=== PATIENT | female | born 1945 | race Caucasian/White ===

== ENCOUNTER 2023-08-23 17:07 | Emergency (ER) | payer MEDICARE, OTHER, SELFPAY ==
[2023-08-23] VITALS (18 sets, daily range): BP systolic 150–184; BP diastolic 66–95; PULSE 59–73; RESP 16–24; TEMP 36.2; O2SAT 93–99; BMI 26.6
--- NOTE | 2023-08-23 17:23 | DI.RAD.S_ITS ---
PROCEDURE: XR CHEST 1V INDICATIONS: chest pain TECHNIQUE: One view of the chest was acquired. COMPARISON: None. FINDINGS: Surgical changes and devices: None. Lungs and pleura: Lungs are clear. No pleural effusions or pneumothorax. Mediastinum: Mediastinal contours appear normal. Heart size is normal. Bones and chest wall: No suspicious bony lesions. Overlying soft tissues appear unremarkable. IMPRESSION: No acute cardiopulmonary abnormality is seen. Dictated by: Howard Templeton M.D. on 08/23/2023 at 16:51 Approved by: Howard Templeton M.D. on 08/23/2023 at 16:51
--- NOTE | 2023-08-23 17:23 | EKG_ITS ---
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
[2023-08-23 17:44] LABS: Add Manual Diff / Slide Review NO; Basophils Absolute Auto 100 /uL (0-100); Basophils Percent Auto 0.9 % (0-2); Eosinophils Absolute Auto 200 /uL (0-450); Eosinophils Percent Auto 2.2 % (2-4); Hematocrit 39.5 % (36-46); Hemoglobin 13.9 g/dL (12.0-16.0); Lymphocytes Absolute Auto 1000 /uL (1100-4500); Lymphocytes Percent Auto 13.2 % (25-40); Mean Corpuscular HGB Conc 35.3 % (30-36); Mean Corpuscular Hemoglobin 31.9 PG (26-34); Mean Corpuscular Volume 90.5 fL (80-100); Monocytes Absolute Auto 800 /uL (0-900); Monocytes Percent Auto 11.1 % (3-14); Neutrophils Absolute Auto 5400 /uL (1500-7000); Neutrophils Percent Auto 72.6 % (50-75); Platelet Count 233 X10^3/uL (150-400); Red Blood Cell Count 4.37 X10^6/uL (4.0-5.2); White Blood Cell Count 7.5 X10^3/uL (4.5-11.0)
[2023-08-23 17:50] LABS: INR 0.9 (0.9-1.3); Prothrombin Time 10.7 SECONDS (9.4-12.5)
[2023-08-23 17:52] LABS: PTT Partial Thromboplastin Tim 31 SECONDS (25.1-36.5)
[2023-08-23 17:53] LABS: Alanine Aminotransferase 37 IU/L (<35); Albumin 4.2 g/dL (3.5-5.0); Albumin Globulin Ratio 1.5 (1.0-2.8); Alkaline Phosphatase 111 U/L (38-126); Aspartate Aminotransferase 40 IU/L (14-36); BUN Creatinine Ratio 19.7 (6-22); Bilirubin Total 0.8 mg/dL (0.2-1.3); Blood Urea Nitrogen 14 mg/dL (7-17); Calcium 8.9 mg/dL (8.4-10.2); Carbon Dioxide 28 mmol/L (22-32); Chloride 107 mmol/L (98-107); Creatine Kinase 87 U/L (30-135); Estimated Glomerular Filt Rate > 60 mL/min (>60); Globulin 2.8 g/dL (1.7-4.1); Glucose 87 mg/dL (80-110); HEMOLYSIS < 15 (0-50); Lipase 155 U/L (23-300); Magnesium 2.1 mg/dL (1.6-2.3); Sodium 137 mmol/L (137-145)
[2023-08-23] MEDS: ASPIRIN 81 MG CHEW TAB 324 MG PO (17:58)
[2023-08-23 18:05] LABS: NT-proBNP (BNP-Adult 18+) 24 pg/mL (<450); Troponin I < 0.012 ng/mL (0.01-0.034)
--- NOTE | 2023-08-23 18:07 | ED_ITS ---
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 No history of home oxygen. Denies history of coronary artery disease. No history of reactive airways/asthma, does not use home breathing treatments or inhalers. She denies history of blood clots, no blood thinner medications, no leg pain or swelling symptoms. Related Data Home Medications Medication Instructions Recorded Confirmed famotidine 20 mg tablet (Pepcid) 20 mg PO DAILY 12/24/22 12/24/22 pravastatin 40 mg tablet 40 mg PO DAILY 12/24/22 12/24/22 Previous Rx's Medication Instructions Recorded albuterol sulfate 90 mcg/actuation 2 puff inhalation Q6H PRN 08/23/23 aerosol inhaler shortness of breath or wheezing #8.5 grams nirmatrelvir 300 mg (150 mg See Rx Instructions PO .COMPLEX #1 08/23/23 x2)-ritonavir 100 mg tablet,dose packet pack (Paxlovid) Allergies Allergy/AdvReac Type Severity Reaction Status Date / Time doxycycline AdvReac Mild Diarrhea Verified 08/23/23 17:16 Review of Systems Review of Systems Narrative: See HPI Patient History Medical History (Updated 08/23/23 @ 23:29 by Cordell Bettencourt MD) PIPPA (obstructive sleep apnea) Social History Smoking Status: Never smoker Smoking Status: Never smoker alcohol intake frequency: holidays/special occasions only Substance Use Type: does not use Exam Narrative Exam Narrative: GENERAL: Well-developed patient, in mild distress. HEAD: Atraumatic. Normocephalic. EYES: Pupils equal round and reactive. Extraocular motions intact. No scleral icterus. No injection or drainage. ENT: Nose without bleeding, purulent drainage. Throat without erythema, tonsillar hypertrophy or exudate. Airway patent. NECK: Trachea midline. Non tender CARDIOVASCULAR: Regular rate and rhythm without murmurs, gallops, or rubs. RESPIRATORY: Clear to auscultation. Breath sounds equal bilaterally. No wheezes, rales, or rhonchi. GASTROINTESTINAL: Abdomen soft, non-tender, nondistended. EXTREMITIES: No edema or joint tenderness. BACK: Nontender without deformity or crepitance. No flank tenderness. NEURO: AOx3. SKIN: No rash or erythema of visible areas Initial Vital Signs Initial Vital Signs: Vital Signs Temperature 97.1 F L 08/23/23 17:16 Pulse Rate 64 08/23/23 17:16 Respiratory Rate 16 08/23/23 17:16 Blood Pressure 183/89 H 08/23/23 17:16 Pulse Oximetry 99 08/23/23 17:16 Oxygen Delivery Method Room Air 08/23/23 17:16 Course Orders Ordered: Acetaminophen (Acetaminophen 325 Mg Tablet) 650 mg PO Q6H PRN PRN Reason: Fever/Mild Pain (1-3) Enoxaparin Sodium (Enoxaparin 100 Mg/Ml Syringe) 70 mg SUBCUT Q12H YVETTE Naloxone HCl (Naloxone 0.4 Mg/Ml Vial) 0.2 mg IV Q2MIN PRN PRN Reason: Opiate Reversal Pantoprazole Sodium (Pantoprazole Dr 20 Mg Tablet) 20 mg PO 0700 [facility] Discontinued Medications Albuterol (Albuterol 2.5 Mg/3 Ml Neb (Adult)) 2.5 mg INH NOW ONE Stop: 08/23/23 18:23 Last Admin: 08/23/23 19:48 Dose: 2.5 mg Documented By: BH Aspirin (Aspirin 81 Mg Chew Tab) 324 mg PO NOW ONE Stop: 08/23/23 17:24 Last Admin: 08/23/23 17:58 Dose: 324 mg Documented By: SPF Enoxaparin Sodium (Enoxaparin 100 Mg/Ml Syringe) 70 mg SUBCUT NOW ONE Stop: 08/23/23 23:46 Last Admin: 08/24/23 01:28 Dose: 70 mg Documented By: KD Enoxaparin Sodium (Enoxaparin 40 Mg/0.4 Ml Syringe) 75 mg 1 mg/kg (75 mg) SUBCUT BID [facility] Vital Signs Vital signs: Vital Signs - 8 hr 08/23/23 17:16 08/23/23 17:37 08/23/23 17:40 Temperature 97.1 F L Pulse Rate 64 59 L Respiratory Rate 16 Blood Pressure 183/89 H 160/81 H Pulse Oximetry 99 93 Oxygen Delivery Method Room Air 08/23/23 17:40 08/23/23 18:00 08/23/23 18:00 Temperature Pulse Rate 61 61 Respiratory Rate 19 Blood Pressure 150/83 H Pulse Oximetry 98 98 Oxygen Delivery Method Room Air 08/23/23 18:30 08/23/23 18:30 08/23/23 19:00 Temperature Pulse Rate 61 61 Respiratory Rate 24 24 Blood Pressure 153/74 H Pulse Oximetry 97 99 Oxygen Delivery Method 08/23/23 19:27 08/23/23 19:27 08/23/23 19:30 Temperature Pulse Rate 62 Respiratory Rate 23 Blood Pressure 157/74 H 152/66 H Pulse Oximetry 97 Oxygen Delivery Method Room Air 08/23/23 19:30 08/23/23 19:49 08/23/23 20:00 Temperature Pulse Rate 64 Respiratory Rate 21 Blood Pressure 164/73 H Pulse Oximetry 96 Oxygen Delivery Method Room Air Room Air 08/23/23 20:00 08/23/23 20:30 Temperature Pulse Rate 64 73 Respiratory Rate 19 Blood Pressure Pulse Oximetry 97 96 Oxygen Delivery Method MDM - Chest Pain Lab Data Attestation: I reviewed the patient's lab results. 08/23/23 17:35 08/23/23 17:35 Labs: Lab Results 08/23/23 08/23/23 Range/Units 17:35 21:23 WBC 7.5 (4.5-11.0) X10^3/uL RBC 4.37 (4.0-5.2) X10^6/uL Hgb 13.9 (12.0-16.0) g/dL Hct 39.5 (36-46) % MCV 90.5 (80-100) fL MCH 31.9 (26-34) PG MCHC 35.3 (30-36) % RDW 13.0 (11.6-14.8) % Plt Count 233 (150-400) X10^3/uL Neut % (Auto) 72.6 (50-75) % Lymph % (Auto) 13.2 L (25-40) % [place] % (Auto) 11.1 (3-14) % Eos % (Auto) 2.2 (2-4) % Baso % (Auto) 0.9 (0-2) % Neut # (Auto) 5400 (8219-0159) /uL Lymph # (Auto) 1000 L (7863-7667) /uL [place] # (Auto) 800 (0-900) /uL Eos # (Auto) 200 (0-450) /uL Baso # (Auto) 100 (0-100) /uL PT 10.7 (9.4-12.5) SECONDS INR 0.9 (0.9-1.3) APTT 31 (25.1-36.5) SECONDS D-Dimer 1895 H (<500) ng/ml Sodium 137 (137-145) mmol/L Potassium 4.0 (3.4-5.1) mmol/L Chloride 107 (98-107) mmol/L Carbon Dioxide 28 (22-32) mmol/L BUN 14 (7-17) mg/dL Creatinine 0.71 (0.52-1.04) mg/dL Estimated GFR > 60 (>60) mL/min BUN/Creatinine Ratio 19.7 (6-22) Glucose 87 (80-110) mg/dL Calcium 8.9 (8.4-10.2) mg/dL Magnesium 2.1 (1.6-2.3) mg/dL Total Bilirubin 0.8 (0.2-1.3) mg/dL AST 40 H (14-36) IU/L ALT 37 H (<35) IU/L Alkaline Phosphatase 111 (38-126) U/L Total Creatine Kinase 87 (30-135) U/L Troponin I < 0.012 < 0.012 (0.01-0.034) ng/mL NT-Pro-B Natriuret Pep 24 (<450) pg/mL Total Protein 7.0 (6.3-8.2) g/dL Albumin 4.2 (3.5-5.0) g/dL Globulin 2.8 (1.7-4.1) g/dL Albumin/Globulin Ratio 1.5 (1.0-2.8) Lipase 155 (23-300) U/L Imaging Data Chest x-ray: Radiologist's Impression: [address] [address] XRay Report Signed Patient: Shanae Torre MR#: [id number] : 1945 Acct:[id number] Age/Sex: 78 / F Date of Service: 08/23/23 Loc: ED Accession Number: [id number] Procedure: XR chest 1V Ordering Provider: Xiomara Spangler D.O. PROCEDURE: XR CHEST 1V INDICATIONS: chest pain TECHNIQUE: One view of the chest was acquired. COMPARISON: None. FINDINGS: Surgical changes and devices: None. Lungs and pleura: Lungs are clear. No pleural effusions or pneumothorax. Mediastinum: Mediastinal contours appear normal. Heart size is normal. Bones and chest wall: No suspicious bony lesions. Overlying soft tissues appear unremarkable. IMPRESSION: No acute cardiopulmonary abnormality is seen. Dictated by: Howard Templeton M.D. on 08/23/2023 at 16:51 Approved by: Howard Templeton M.D. on 08/23/2023 at 16:51 ECG Data Interpretation: Normal sinus rhythm with rate of 69, no obvious ST segment elevation or depression. . MA 172, QRS 78, QTC 439. MDM Narrative Medical decision making narrative: 78-year-old female with upper respiratory infection symptoms after [place] travel and long airplane flight, sore throat, chest tightness, home COVID reportedly positive today. No oxygen requirement. Lungs clear. EKG without obvious ischemic changes. Chest x-ray negative. BNP normal. Chest tightness still present, we will try SVN albuterol. D-dimer results pending D-dimer 1800 elevated, GFR favorable, CTA chest PE protocol ordered CTA chest PE protocol. Impression: ?Small nonocclusive right lower lobe pulmonary emboli. Subtle nonspecific bibasilar patchy ground-glass opacities. Severe LAD coronary calcifications.? Radiology report Repeat interval troponin negative. We will contact hospitalist. COVID illness with dyspnea and chest pain, right lower pulmonary emboli present but are nonocclusive, we will query about admission criteria versus outpatient treatment, consult hospitalist. Case discussed with Dr. Samuel, advises admission, accepts patient for admission to observation Critical Care Time Critical Care Time Critical Care Time: Yes Total Critical Care Time: 35 Attestation: The high probability of a clinically significant, sudden or life threatening deterioration of the [cardiopulmonary hematologic] system(s) required my full and direct attention, intervention and personal management. The aggregate critical care time was [35] minutes. This time is in addition to time spent performing reported procedures but includes the following: [x] Data Review and interpretation [x] Patient assessment and monitoring of vital signs [x] Documentation [x] Medication orders and management Discharge Plan Departure Patient Disposition: Admitted as Observation Clinical Impression: COVID-19, Chest tightness, Pulmonary emboli Admit Date/Time: 08/23/23 23:33 Admit Provider: Gaston Samuel
[2023-08-23 18:17] LABS: D Dimer 1895 ng/ml (<500)
--- NOTE | 2023-08-23 18:27 | DI.CT.S_ITS ---
PROCEDURE: CT ANGIO CHEST PE PROTOCOL INDICATIONS: chest tight, Covid+ today at home, Ddimer++, eval for PE TECHNIQUE: After the administration of intravenous contrast, 2 mm thick sections acquired from the pulmonary apices to the posterior costophrenic angles. 3-dimensional maximum intensity projection (MIP) coronal and sagittal reformats were then acquired through the thorax. For radiation dose reduction, the following was used: automated exposure control, adjustment of mA and/or kV according to patient size. COMPARISON: None. FINDINGS: Image quality: Diagnostic. Pulmonary arteries: Pulmonary arteries are normal in size, . There is a small posterior basal right lower lobe pulmonary artery embolus, which is nonobstructive. Reference images 76 and 77 of series 5. Additionally, there is a nonobstructive right lower lobe inter basal segment pulmonary embolus on image 79/5. Lower Neck: No enlarged lymph nodes. Thyroid: No thyroid nodules which require sonographic follow up, per consensus guidelines. Axillae: No enlarged lymph nodes. Chest Wall: Unremarkable. Bones: Unremarkable. Lungs and Pleura: No pneumothorax or pleural effusions. Very minimal bibasilar patchy ground-glass opacities which are nonspecific, even in the face of a positive COVID-19 test. Heart: Heart size is normal. No pericardial effusion. Severe LAD coronary artery calcifications. Thoracic Vessels: No aortic aneurysm. Mediastinum and Rachelle: No enlarged lymph nodes. Esophagus: No wall thickening. No hiatal hernia. Upper Abdomen: Visualized upper abdomen solid organs and bowel loops appear normal. IMPRESSION: 1. Small nonocclusive right lower lobe pulmonary emboli. 2. Subtle nonspecific bibasilar patchy ground-glass opacities. 3. Severe LAD coronary artery calcifications. Dictated by: Cali Petersen M.D. on 08/23/2023 at 19:08 Approved by: Cali Petersen M.D. on 08/23/2023 at 19:18
[2023-08-23] MEDS: ALBUTEROL 2.5 MG/3 ML NEB (ADULT) INH (19:48)
[2023-08-23 21:56] LABS: Troponin I < 0.012 ng/mL (0.01-0.034)
[2023-08-24] VITALS (26 sets, daily range): BP systolic 137–184; BP diastolic 65–93; PULSE 58–86; RESP 18; TEMP 37.2; O2SAT 88–99
[2023-08-24] MEDS: ENOXAPARIN 100 MG/ML SYRINGE 70 MG SUBCUT (01:28)
--- NOTE | 2023-08-24 01:46 | PM.HP.1 ---
History of Present Illness History of Present Illness Date Patient Seen: 08/24/23 Time Patient Seen: 01:43 Chief complaint: chest pain Narrative: 78 years old female with a past medical history of obstructive sleep apnea presents emergency room for generalized body ache sore throat cough and chest tightness symptoms. She had recently returned from [place] from singing to. Not sure if she has fever. Denies any palpitation dizziness or loss of consciousness. In the home COVID test was positive and she was interested in trying Paxlovid antiviral treatment. In the ED was saturating in the high 90s on room air. Further lab workup showed significant elevation in the D-dimer levels at 1008 and 95 compared to less than 500 being the normal. CBC and CMP was fairly unremarkable. CT angio of the chest shows small nonocclusive right lower lobe pulmonary embolism with subtle nonspecific bases with patchy groundglass opacities. Severe LAD coronary calcifications noted. Patient was initiated on therapeutic Lovenox and admitted for further evaluation [facility] Medical History (Updated 08/23/23 @ 23:29 by Cordell Bettencourt MD) PIPPA (obstructive sleep apnea) Social History Smoking Status: Never smoker Meds Home Medications and Allergies Home Medications Medication Instructions Recorded Confirmed Type famotidine 20 mg tablet (Pepcid) 20 mg PO DAILY 12/24/22 12/24/22 History pravastatin 40 mg tablet 40 mg PO DAILY 12/24/22 12/24/22 History albuterol sulfate 90 mcg/actuation 2 puff inhalation Q6H PRN 08/23/23 Rx aerosol inhaler shortness of breath or wheezing #8.5 grams nirmatrelvir 300 mg (150 mg See Rx Instructions PO .COMPLEX #1 08/23/23 Rx x2)-ritonavir 100 mg tablet,dose packet pack (Paxlovid) Allergies Allergy/AdvReac Type Severity Reaction Status Date / Time doxycycline AdvReac Mild Diarrhea Verified 08/23/23 17:16 Review of Systems Cardiovascular Comments: At 12 point review of system is negative unless otherwise stated initially present illness Exam Vital Signs (past 8 hours): - 08/23/23 18:00 08/23/23 18:00 08/23/23 18:30 Pulse Rate 61 Respiratory Rate 19 Blood Pressure 150/83 H 153/74 H Pulse Oximetry 98 Oxygen Delivery Method Room Air 08/23/23 18:30 08/23/23 19:00 08/23/23 19:27 Pulse Rate 61 61 62 Respiratory Rate 24 24 23 Blood Pressure Pulse Oximetry 97 99 97 Oxygen Delivery Method Room Air 08/23/23 19:27 08/23/23 19:30 08/23/23 19:30 Pulse Rate 64 Respiratory Rate 21 Blood Pressure 157/74 H 152/66 H Pulse Oximetry 96 Oxygen Delivery Method Room Air 08/23/23 19:49 08/23/23 20:00 08/23/23 20:00 Pulse Rate 64 Respiratory Rate 19 Blood Pressure 164/73 H Pulse Oximetry 97 Oxygen Delivery Method Room Air 08/23/23 20:30 Pulse Rate 73 Respiratory Rate Blood Pressure Pulse Oximetry 96 Oxygen Delivery Method Oxygen Delivery Method Room Air Narrative Exam Narrative: Patient is in no acute distress S1-S2 heard no S3 no S4 Air entry decreased bilaterally at the base Objective Labs 08/23/23 17:35 08/23/23 17:35 Labs: Laboratory Results - last 24 hr 08/23/23 08/23/23 17:35 21:23 WBC 7.5 RBC 4.37 Hgb 13.9 Hct 39.5 MCV 90.5 MCH 31.9 MCHC 35.3 RDW 13.0 Plt Count 233 Neut % (Auto) 72.6 Lymph % (Auto) 13.2 L [place] % (Auto) 11.1 Eos % (Auto) 2.2 Baso % (Auto) 0.9 Neut # (Auto) 5400 Lymph # (Auto) 1000 L [place] # (Auto) 800 Eos # (Auto) 200 Baso # (Auto) 100 PT 10.7 INR 0.9 APTT 31 D-Dimer 1895 H Sodium 137 Potassium 4.0 Chloride 107 Carbon Dioxide 28 BUN 14 Creatinine 0.71 Estimated GFR > 60 BUN/Creatinine Ratio 19.7 Glucose 87 Calcium 8.9 Magnesium 2.1 Total Bilirubin 0.8 AST 40 H ALT 37 H Alkaline Phosphatase 111 Total Creatine Kinase 87 Troponin I < 0.012 < 0.012 NT-Pro-B Natriuret Pep 24 Total Protein 7.0 Albumin 4.2 Globulin 2.8 Albumin/Globulin Ratio 1.5 Lipase 155 Assessment & Plan Assessment & Plan narrative: 78 years old female with a past medical history of obstructive sleep apnea presents emergency room for generalized body ache sore throat cough and chest tightness symptoms. She had recently returned from [place] from [place] to. Not sure if she has fever. Denies any palpitation dizziness or loss of consciousness. In the home COVID test was positive and she was interested in trying Paxlovid antiviral treatment. In the ED was saturating in the high 90s on room air. Further lab workup showed significant elevation in the D-dimer levels at 1008 and 95 compared to less than 500 being the normal. CBC and CMP was fairly unremarkable. CT angio of the chest shows small nonocclusive right lower lobe pulmonary embolism with subtle nonspecific bases with patchy groundglass opacities. Severe LAD coronary calcifications noted. Patient was initiated on therapeutic Lovenox and admitted for further evaluation 1 dyspnea with chest tightness and symptomatic COVID. Saturating in the mid 90s on room air but does have pulm embolism. Treat the PE with anticoagulation. 2. Pulm embolism in the setting of COVID infection. Continue the therapeutic Lovenox for now monitor on the telemetry/follow-up with an echocardiogram. Prefer transition to oral Eliquis or Xarelto but will need to be reviewed with the insurance for coverage. Check a lower extremity Doppler to rule out any DVT 3. Covid Infection: trial Paxlovid on dc. order if available inpatient 3 DVT prophylaxis will be Lovenox 4 GI prophylaxis will be Protonix 5. Chest tightness/pain appears to have a more of a pleuritic component. Monitor in the telemetry and follow-up on the echocardiogram and check serial enzymes. CT angiogram did show significant calcifications of the coronary which may eventually be followed up in the outpatient setting Will be admitted under observation status Patient was evaluated with the help of a video communication device. Location of the patient is [facility]
--- NOTE | 2023-08-24 01:56 | DI.US.S_ITS ---
PROCEDURE: US PERIPH VENOUS LOW EXTREM BI INDICATIONS: PE; COVID TECHNIQUE: Real-time imaging, as well as color and pulse Doppler interrogation, were performed of the deep veins of both legs from the inguinal ligament to the popliteal fossa, with documentation of the visualized calf veins. COMPARISON: [facility], CT, CT ANGIO CHEST PE PROTOCOL, 08/23/2023, 18:43. FINDINGS: Right: The common femoral, femoral, popliteal, and the visualized calf veins are normally compressible, and free of intraluminal thrombus. Color and pulse Doppler demonstrate normal phasic intravascular flow. There is normal augmentation response to distal compression maneuver. Right popliteal fossa fluid collection measuring 6.3 x 3.5 x 1.4 cm. Left: The common femoral, femoral, popliteal, and the visualized calf veins are normally compressible, and free of intraluminal thrombus. Color and pulse Doppler demonstrate normal phasic intravascular flow. There is normal augmentation response to distal compression maneuver. IMPRESSION: No findings of deep venous thrombosis in either lower extremity. Right Wilder's cyst. Dictated by: Hunter Lopez M.D. on 08/24/2023 at 8:10 Approved by: Hunter Lopez M.D. on 08/24/2023 at 8:12
--- NOTE | 2023-08-24 08:49 | PM.DS.1 ---
History of Present Illness History of Present Illness Date Patient Seen: 08/24/23 Time Patient Seen: 08:30 Chief complaint: chest pain Narrative: Per admitting provider, 78 years old female with a past medical history of obstructive sleep apnea presents emergency room for generalized body ache sore throat cough and chest tightness symptoms. She had recently returned from [place] from [place]. Not sure if she has fever. Denies any palpitation dizziness or loss of consciousness. In the home COVID test was positive and she was interested in trying Paxlovid antiviral treatment. In the ED was saturating in the high 90s on room air. Further lab workup showed significant elevation in the D-dimer levels at 1008 and 95 compared to less than 500 being the normal. CBC and CMP was fairly unremarkable. CT angio of the chest shows small nonocclusive right lower lobe pulmonary embolism with subtle nonspecific bases with patchy groundglass opacities. Severe LAD coronary calcifications noted. Patient was initiated on therapeutic Lovenox and admitted for further evaluation Discharge Providers Provider Date of admission: 08/23/23 23:33 Discharge Date: 08/24/23 Primary care physician: Shlomo Fair MD Discharge provider: Davis Brown DO Summary Hospital Course Discharge Diagnosis: 1. RLL pulmonary embolism 2. COVID pneumonia 3. PIPPA, chronic Hospital Course: 78 F who presented with pleuritic type chest pain after a recent flight to and back from [place]. She was found to have a small PE on CT angio. She was not hypoxic and her chest pain was pleuritic in nature. She felt improved in the emergency room. She remained hemodynamically stable, and troponins were negative with no evidence for any R heart strain. She was given an prescription for starter pack of eliquis, and recommend prompt PCP follow up. Given liklely provoked nature, 3-6 months of anticoagulation is recommended at this time. Given need for AC, paxlovid was not recommended on discharge. No other medications were recommended and patient was given supportive care recommendations with over the counter medications. Time Spent with Patient Time spent: Less than 30 minutes Exam Vital Signs (past 8 hours): - 08/24/23 01:00 08/24/23 01:30 08/24/23 01:32 Pulse Rate 69 63 62 Respiratory Rate Blood Pressure Pulse Oximetry 97 97 Oxygen Delivery Method 08/24/23 01:32 08/24/23 02:01 08/24/23 02:30 Pulse Rate 67 60 Respiratory Rate Blood Pressure 184/93 H Pulse Oximetry 88 L 98 Oxygen Delivery Method 08/24/23 03:00 08/24/23 03:30 08/24/23 03:37 Pulse Rate 65 61 Respiratory Rate 18 Blood Pressure 137/72 137/72 Pulse Oximetry 98 98 Oxygen Delivery Method Room Air 08/24/23 03:37 08/24/23 04:00 08/24/23 04:00 Pulse Rate 68 64 Respiratory Rate Blood Pressure 147/65 H Pulse Oximetry 98 96 Oxygen Delivery Method 08/24/23 04:30 08/24/23 05:00 08/24/23 05:30 Pulse Rate 63 70 66 Respiratory Rate Blood Pressure Pulse Oximetry 96 96 95 Oxygen Delivery Method 08/24/23 06:00 08/24/23 06:00 08/24/23 06:30 Pulse Rate 65 58 L Respiratory Rate Blood Pressure 137/67 Pulse Oximetry 96 97 Oxygen Delivery Method 08/24/23 07:00 08/24/23 07:30 08/24/23 08:00 Pulse Rate 73 Respiratory Rate Blood Pressure 162/77 H Pulse Oximetry 96 97 Oxygen Delivery Method 08/24/23 08:00 Pulse Rate 73 Respiratory Rate Blood Pressure Pulse Oximetry 95 Oxygen Delivery Method Oxygen Delivery Method Room Air Narrative Exam Narrative: Gen: NAD, WDWN Ext: no edema CV: RRR no m/r/g Pulm: no respiratory distress Objective Labs 08/23/23 17:35 08/23/23 17:35 Labs: Laboratory Results - last 24 hr 08/23/23 08/23/23 17:35 21:23 WBC 7.5 RBC 4.37 Hgb 13.9 Hct 39.5 MCV 90.5 MCH 31.9 MCHC 35.3 RDW 13.0 Plt Count 233 Neut % (Auto) 72.6 Lymph % (Auto) 13.2 L [place] % (Auto) 11.1 Eos % (Auto) 2.2 Baso % (Auto) 0.9 Neut # (Auto) 5400 Lymph # (Auto) 1000 L [place] # (Auto) 800 Eos # (Auto) 200 Baso # (Auto) 100 PT 10.7 INR 0.9 APTT 31 D-Dimer 1895 H Sodium 137 Potassium 4.0 Chloride 107 Carbon Dioxide 28 BUN 14 Creatinine 0.71 Estimated GFR > 60 BUN/Creatinine Ratio 19.7 Glucose 87 Calcium 8.9 Magnesium 2.1 Total Bilirubin 0.8 AST 40 H ALT 37 H Alkaline Phosphatase 111 Total Creatine Kinase 87 Troponin I < 0.012 < 0.012 NT-Pro-B Natriuret Pep 24 Total Protein 7.0 Albumin 4.2 Globulin 2.8 Albumin/Globulin Ratio 1.5 Lipase 155 PFSH Medical History (Updated 08/23/23 @ 23:29 by Cordell Bettencourt MD) PIPPA (obstructive sleep apnea) Social History Smoking Status: Never smoker Discharge Plan Departure Patient Disposition: Home Clinical Impression: COVID-19, Chest tightness, Pulmonary emboli Prescriptions: New albuterol sulfate 90 mcg/actuation HFA aerosol inhaler 2 puff inhalation Q6H PRN (Reason: shortness of breath or wheezing) Qty: 8.5 0RF Eliquis DVT-PE Treat 30D Start 5 mg (74 tabs) tablets,dose pack See Rx Instructions .ROUTE .COMPLEX Qty: 74 0RF Rx Instructions: orally per package directions, 10 mg BID for 1 week followed by 5 mg BID. Continued pravastatin 40 mg tablet 40 mg PO DAILY famotidine [Pepcid] 20 mg tablet 20 mg PO DAILY Discontinued nabumetone 750 mg tablet 750 mg PO BID PRN (Reason: mild pain) Referrals: Shlomo Fair MD [Primary Care Provider] - 2 Weeks Stand Alone Forms: Patient Portal/API, Stroke Signs & Symptoms
[2023-08-24] MEDS: PANTOPRAZOLE DR 20 MG TABLET PO (10:39)
== END 2023-08-24 11:19 | disposition home or self-care (01) ==
LOC: ED 23:29 → AC 08-24 07:56
PROVIDERS: Emergency Medicine; Emergency Provider Emergency Medicine; PCP Family Medicine Sports Medicine; Referring Provider Emergency Medicine
DX: I26.99 Other pulmonary embolism without acute cor pulmonale (principal); U07.1 COVID-19; R07.9 Chest pain, unspecified; R79.89 Other specified abnormal findings of blood chemistry
CPT/HCPCS: 36415; 71045; 71275; 80053; 82550; 83690; 83735; 83880; 84484; 85025; 85379; 85610; 85730; 93005; 93970; 94640; 96372; 99284; 99285; J1650; J7613; Q9967